=== PATIENT | female | born 1980 | race Caucasian/White ===

== ENCOUNTER 2023-07-03 20:12 | Emergency (ER) | payer OTHER, SELFPAY ==
[2023-07-03 20:21] VITALS: BP 125/90
[2023-07-03 20:22] LABS: Glucose - Point of Care 94 mg/dl (70-99)
[2023-07-03 20:23] VITALS: BP 125/90
[2023-07-03 20:24] VITALS: BMI 22.5
[2023-07-03 20:48] LABS: % Basophils 0.2 % (0-2); % Eosinophils 0.2 % (0-6); % Immature Granulocytes 0.4 % (0-0.5); % Lymphocytes 7.2 % (20.5-51.1); Absolute Lymphocytes 0.3 10^3/uL (1.2-3.4); Absolute Monocytes 0.6 10^3/uL (0.1-0.6); Absolute Neutrophils 3.5 10^3/uL (1.4-6.5); Hematocrit 41.1 % (37.0-47.0); Hemoglobin 14.2 g/dL (12.0-16.0); Mean Corp Hgb Conc. 34.5 g/dL (33.0-37.0); Mean Corpuscular Hgb 29.9 pg (27.0-31.0); Mean Corpuscular Volume 86.5 fL (81.0-99.0); Nucleated Red Blood Cells % 0 %; Platelet Count 125 10^3/uL (130-400); Red Blood Cell Count 4.75 10^6/uL (4.20-5.40); Red Cell Dist. Width 14.5 % (11.5-14.5); White Blood Cell Count 4.5 10^3/uL (4.8-10.8)
--- NOTE | 2023-07-03 20:53 | ED.GENMED ---
History of Present Illness
General
Chief Complaint: Change in Mental Status
Source: patient
Exam Limitations: none
Time Seen by Provider: 07/03/23 20:21
Nursing documentation reviewed up to this point in time: agreed with
History of Present Illness
History of Present Illness:
Patient is a 43-year-old female who [facility] from [facility] with concerns for acute mental status change and possible stroke. On arrival, patient seems to be mouthing words and having trouble verbalizing/projecting volume. She appears shaky and
anxious and is a poor historian. Paramedics report that they have met her in the past and she has never had difficulty speaking like this before. They reports she was last seen normal at around 4:30 PM today. On arrival, patient seems to be
mouthing what she wants to say but nothing is coming out. Her face appears symmetric. She is moving all extremities equally. She appears anxious. Stroke alert called.
After patient came back from CAT scan, patient felt warm to the touch and found to have a fever. I tried to calm patient down to ask her why she is not projecting her words. She is now telling me that her throat is really hurting her. She is
telling me she has body pain and a mild headache. She is mouthing each and every word but is whispering the words. Therefore, I do not think she has aphasia after all.
Past History
Past History
ED Past Medical History: Other
ED Past Surgical History: Other
Social History
Tobacco: Former smoker
Alcohol: None
Drug: Former user and Other (Patient reports she used IV drugs but has not used IV drugs in years)
Personal: Single
Living: [facility]
Employment: Other
Family History
Family History: Other
Review of Systems
Review of Systems
Allergies reviewed?: Yes
All Other Systems: ROS reviewed and negative except as documented in HPI and ROS
Constitutional: Reports fever, fatigue and chills
EENT: Reports other (Sore throat)
Respiratory: Reports no symptoms
Cardiac: Reports no symptoms
ABD/GI: Reports no symptoms
: Reports no symptoms
Musculoskeletal: Reports muscle stiffness
Skin: Reports no symptoms
Neurological: Reports headache
Endocrine: Reports no symptoms
Hematologic/Lymphatic: Reports no symptoms
Psychiatric: Reports anxiety
Phy Exam
Physical Exam
Physical Exam:
Physical Exam
General: Patient is very anxious. She keeps mouthing words but no volume comes out. Appears agitated. Face appears symmetric
Neck: supple. no meningeal signs. normal psoterior pharynx. No pharyngeal erythema or exudate.
Heart: Tachycardic. No murmur
Lungs: no acute respiratory distress. clear bilaterally
Abdomen: Soft, nondistended, nontender
Neuro: alert and orientedx3. no focal neurological deficits
Skin: no rash
Psychiatric: Anxious
Extremities: no edema. no calf tenderness. negative homans. good distal pulses
Course
Orders/Labs/Results
Orders:
Orders
07/03/23 20:14
Electrocardiogram (*1) Urgent
Reason for Study: Other
Other Reason for Exam: Possible Sepsis
Cardiac Monitoring- Treatment ONCE
IV Insert/Care/Rem.- Treatment PRN
Straight cath- Treatment ONCE
O2 Therapy [RESP] Urgent
Titrate/Wean O2 to maintain O2 sat greater than (%): 93
Special Instructions: TO MAINTAIN CONTINUOUS O2 SATS > OR = 93%
Pulse Ox/cont/shift [RESP] Urgent
Quantity: 1
Special Instructions: CONTINUOUS
07/03/23 20:15
EKG- Treatment ONCE
07/03/23 20:21
Complete Blood Count/With Diff Urgent
Comprehensive Metabolic Panel Urgent
HCG, Serum Qualitative Screen Urgent
Comment: ADD ON
Lactic Acid Q4H
Comment: ON ICE, CANCEL 2ND ORDER IF FIRST LACTIC ACID LEVEL <2
Prothrombin Time Urgent
Blood Culture Q30M
CORNELIO Source: Blood/Venous
Specimen Description:
Comment: FROM 2 SEPARATE SITES
Blood Culture Q30M
CORNELIO Source: Blood/Venous
Specimen Description:
Comment: FROM 2 SEPARATE SITES
07/03/23 20:22
CT Head W/o Cont STROKE ALERT Urgent
Comment:
Reason For Exam: aphasia
CT Head/Neck Ang STROKE ALERT Urgent
Comment:
Reason For Exam: aphasia
07/03/23 20:52
0.9% Sodium Chloride 1000 ml [Nss] 1,000 ml IV BOLUS
07/03/23 20:53
Acetaminophen [Tylenol] 1,000 mg PO NOW STA
Ketorolac [Toradol] 30 mg IV NOW STA
07/03/23 20:55
COVID-19 Antigen Urgent
Source: Nasal Swab
Influenza A+B Rapid Molecular Urgent
CORNELIO Source: Nasal Swab
Specimen Description:
07/03/23 21:36
Add On- LAB Urgent
Tests Added?: serum HCG qualitative
07/03/23 21:49
CR Chest - 2 Views Urgent
Comment:
Reason For Exam: suspected infection
07/03/23 22:18
0.9% Sodium Chloride 1000 ml [Nss] 1,000 ml IV BOLUS
07/03/23 22:48
Urinalysis Reflex To Culture Urgent
Date Specimen was Collected: 07/03/23
Time Specimen was Collected: 20:15
07/04/23 00:15
Lactic Acid Q4H
Comment: ON ICE, CANCEL 2ND ORDER IF FIRST LACTIC ACID LEVEL <2
Abnormal Lab Results
07/03/23 07/03/23
20:21 20:55
WBC 4.5 L 10^3/uL
(4.8-10.8)
Plt Count 125 L 10^3/uL
(130-400)
Absolute Lymphs (auto) 0.3 L 10^3/uL
(1.2-3.4)
Neutrophils % 79.0 H %
(42.2-75.2)
Lymphocytes % 7.2 L %
(20.5-51.1)
Monocytes % 13.0 H %
(1.7-9.3)
Glucose 103 H mg/dl
(70-99)
SARS-CoV-2 Antigen Positive A
(Negative)
07/03/23 20:21
07/03/23 20:21
Vital Signs
Initial and Last Documented VS:
Initial Vital Signs
BP
125/90
07/03/23 20:21
Last Documented Vital Signs
Temp Pulse Resp BP Pulse Ox
102.4 F H 103 18 110/65 97
07/03/23 20:50 07/03/23 23:30 07/03/23 23:30 07/03/23 23:00 07/03/23 23:15
MDM/Problems Addressed
Differential Diagnosis Includes:
Acute stroke causing aphasia, epiglottitis, pharyngitis, viral illness
MDM/Problems Addressed:
Patient presents with acute sore throat and bodyaches
Chronic conditions affecting care:
History of IVDA
*Radiology
Radiology exam reviewed: preliminary read by ED provider (Chest x-ray reviewed by me. No acute disease) and radiology read reviewed
*Pulse Oximetry
Patient hypoxic: no
*EKG
Interpreted by ED Provider?: Yes
Interpretation: abnormal
Comparison EKG: no comparison EKG present
Rate: tachycardiac
Rhythm: sinus
[place]: normal axis
Interval: normal interval
QRS Pattern: normal QRS
Ischemia: no ischemia
*Brick Catcher Interpretation
Rate: tachycardiac
Interpretation: abnormal
Rhythm: sinus
*Critical Care Note
Total Time (30-74mins, 75-104mins- exclusive of procedures): Not Applicable
Patient Management
Social determinants of health affecting care: Living situation
Update Note
Update Note:
Patient reports she has not used IV drugs for many years. Therefore, I do not feel she is at a significant risk for bacteremia. I do not hear murmur to suggest endocarditis. I do feel that patient's symptoms are very consistent with an acute
COVID infection given her sore throat, mild headache, body aches
11:20 PM patient speaking normally. Feels better. Heart rate improved.
ED Attending Note
-
Portions of this chart may have been created with voice recognition software.� Occasional wrong word or��sound alike� substitutions may have occurred due to the inherent limitations of voice recognition software.
Discharge Plan
Departure
Patient Disposition: Home (Routine Discharge)
Date of Disposition: 07/03/23
Time of Disposition: 23:08
Patient with high blood pressure during this ER visit?: Yes
Condition: Good
Covid-19: Confirmed COVID-19
Discharge Problem:
COVID
Instructions: COVID-19 ED, Coronavirus Home Quarantine
Prescriptions:
No Action
No Current Medications
0
Referrals:
[facility] [Family Provider] -
Activity Restrictions/Additional Instructions:
Katarina should wear a mask for at least 7 days. Please give her 1000 mg of Tylenol every 6 hours for fever and/ or pain. In addition to the Tylenol, she could also be given 600 mg of Motrin every 6-8 hours for fever and/or pain
Interventions
Interventions:
*Risk Screen - Suicide Last Done: 07/03/23 21:00
*General Assessment Last Done: 07/03/23 21:00
*ED COVID-19 Vaccine History Last Done: 07/03/23 21:00
ED- Neurological Assessment Last Done: 07/03/23 20:45
ED Swallowing Screen Last Done: 07/03/23 20:45
[2023-07-03 20:57] LABS: INR 1.03; PT 13.3 Sec (11.4-14.6)
[2023-07-03 20:58] LABS: Lactic Acid 1.1 mmol/L (0.7-2.0)
[2023-07-03 21:04] LABS: ALT (SGPT) 35 U/L (0-35); AST (SGOT) 34 U/L (14-36); Albumin 4.1 g/dl (3.5-5.0); Alkaline Phosphatase 60 U/L (38-126); Blood Urea Nitrogen 15 mg/dl (7-17); Calcium 9.4 mg/dl (8.4-10.2); Carbon Dioxide 27 mmol/L (22-30); Chloride 99 mmol/L (98-107); Estimated Creatinine Clearance 111 ml/min; Glucose 103 mg/dl (70-99); Potassium 4.5 mmol/L (3.5-5.1); Sodium 135 mmol/L (135-145); Total Bilirubin 0.6 mg/dl (0.2-1.3); Total Protein 7.4 g/dl (6.3-8.2); eGFR > 60.00
[2023-07-03 21:22] LABS: COVID-19 Antigen Positive (Negative)
[2023-07-03 22:00] VITALS: BP 117/84
[2023-07-03] MEDS: TYLENOL 1000 MG PO (22:00)
[2023-07-03 22:01] LABS: HCG, Serum Qualitative Screen Negative
[2023-07-03] MEDS: TORADOL 30 MG IV (22:01)
[2023-07-03] MEDS: NSS 1000 IV ×2 (22:02→22:27)
[2023-07-03 22:41] VITALS: BP 135/89
[2023-07-03 23:00] VITALS: BP 110/65
== END 2023-07-03 23:54 | disposition home or self-care (01) ==
LOC: EMR 20:12
PROVIDERS: EMERGENCY PHYSICIAN Emergency Medicine
DX: U07.1 COVID-19 (principal); R03.0 Elevated blood-pressure reading, without diagnosis of hypertension; Z87.891 Personal history of nicotine dependence
CPT/HCPCS: 99285; 96374; 96361 ×2; 70450; 70496; 70498; 71046; 80053; 82962; 83605; 84703; 85025; 85610; 87040; 87502; 87811; 93005; Q9967

== ENCOUNTER 2023-08-23 23:08 | Inpatient (IN) | payer OTHER, SELFPAY ==
[2023-08-23] VITALS (21 sets, daily range): BP systolic 87–127; BP diastolic 49–82; BMI 26.6; BMI 25.8
--- NOTE | 2023-08-23 11:46 | ED.GENMED ---
History of Present Illness
General
Chief Complaint: Flank Pain
Source: patient and records
Time Seen by Provider: 08/23/23 11:28
Nursing documentation reviewed up to this point in time: agreed with
Travel History
Have you had any contact with someone who has COVID-19?: No
Do you have any symptoms of coronavirus? Fever > 100 degrees, chills, cough, shortness of breath, sore throat, loss of taste or smell, muscle aches, or headache?: No
History of Present Illness
History of Present Illness:
Patient is a 43-year-old female presents to the emergency department complaining of right-sided and right back pain over the past week and a half that spread into the diffuse abdomen. Patient's nauseous without vomiting. Patient denies any
diarrhea. Patient denies dysuria, hematuria but admits to dark urine. Patient denies any previous history of similar episodes. Patient denies fever or chills. Patient has not had a period for more than a year. Patient denies history of kidney
stones. Patient does have a history of IV drug abuse years ago.
Past History
Past History
ED Past Medical History: Psychiatric (Anxiety, depression) and Other (Substance abuse)
ED Past Surgical History: and Other
Social History
Tobacco: Former smoker
Alcohol: None
Drug: Former user and Other (Patient reports she used IV drugs but has not used IV drugs in years)
Personal: Single
Living: pen[facility]
Employment: Other
Family History
Family History: Other
Review of Systems
Review of Systems
All Other Systems: ROS reviewed and negative except as documented in HPI and ROS
Constitutional: Denies fever or chills
EENT: Reports no symptoms
Respiratory: Reports no symptoms
Cardiac: Reports no symptoms
ABD/GI: Reports abdominal pain, nausea and anorexia; Denies vomiting or black stools
: Reports flank pain and dark urine; Denies dysuria
Musculoskeletal: Reports back pain
Skin: Reports no symptoms
Neurological: Reports no symptoms
Hematologic/Lymphatic: Reports no symptoms
Phy Exam
Physical Exam
Physical Exam:
Physical Exam
General: moderate distress, alert and appropriate, well nourished, well hydrated
HENT: Normocephalic, supple with no lymphadenopathy, no thyromegaly
Eyes: Clear sclera, conjuctiva without injection
Heart: Regular rhythm and rate. No S3, S4. No murmur.
Lungs: No respiratory distress, no stridor, lung sounds clear and equal bilaterally
Abdomen: Soft, moderate diffuse tenderness with guarding, no organomegaly, right CVA tenderness, BS good
Neuro: Alert and oriented x 3, CN II - XII intact, no motor focality, no cerebellar dysfunction
Skin: no rash
Psychiatric: well kept. interactive and cooperative
Extremities: No edema, cyanosis, tenderness, Good and equal peripheral pulses.
Course
Orders/Labs/Results
Orders:
Orders
08/23/23 11:40
Complete Blood Count/With Diff Urgent
Urinalysis Reflex To Culture Urgent
Date Specimen was Collected: 08/23/23
Time Specimen was Collected: 11:40
08/23/23 11:42
Comprehensive Metabolic Panel Urgent
HCG, Serum Qualitative Screen Urgent
Lipase Urgent
08/23/23 11:44
0.9% Sodium Chloride 1000 ml [Nss] 1,000 ml IV BOLUS
Acetaminophen 1000MG/100Ml [Ofirmev] 1,000 mg in 100 ml IV ONCE
Acetaminophen IV Indication:: ED Narcotic History-ONCE
Ketorolac [Toradol] 15 mg IV NOW STA
Lidocaine 2% Mpf [Xylocaine Mpf 2%] 100 mg Pharmacy To Prepare [Call Pharmacy To Prepare] 0 ml IV NOW
Ondansetron Injectable [Zofran] 4 mg IV NOW STA
Test Result ONCE
08/23/23 11:45
CT Abd/pel Without Iv Or Oral Urgent
Comment:
Reason For Exam: right flank pain
Vital Signs
Initial and Last Documented VS:
Initial Vital Signs
Temp Pulse Resp BP Pulse Ox
98.9 F 99 20 111/82 100
08/23/23 11:24 08/23/23 11:24 08/23/23 11:24 08/23/23 11:24 08/23/23 11:24
Last Documented Vital Signs
Temp Pulse Resp BP Pulse Ox
98.9 F 99 20 111/82 100
08/23/23 11:24 08/23/23 11:24 08/23/23 11:24 08/23/23 11:24 08/23/23 11:24
*Pulse Oximetry
Patient hypoxic: no
*EKG
Interpreted by ED Provider?: NA
*Garnett Machine Operator Interpretation
Rate: Garnett Machine Operator- N/A
*Critical Care Note
Total Time (30-74mins, 75-104mins- exclusive of procedures): Not Applicable
ED Attending Note
-
Portions of this chart may have been created with voice recognition software.� Occasional wrong word or��sound alike� substitutions may have occurred due to the inherent limitations of voice recognition software.
Discharge Plan
Departure
Prescriptions:
No Action
No Current Medications
0
Referrals:
[facility] [Family Provider] -
Interventions
Interventions:
*Risk Screen - Suicide Last Done: 08/23/23 11:29
*General Assessment Last Done: 08/23/23 11:29
*Neglect/Abuse Screening Last Done: 08/23/23 11:29
*ED COVID-19 Vaccine History Last Done: 08/23/23 11:39
Discharge Date and Time
Print Language: RUSSIAN
[2023-08-23] MEDS: TORADOL 15 MG IV ×2 (11:55→16:45)
[2023-08-23] MEDS: NSS 1000 IV ×2 (11:56→18:28)
[2023-08-23] MEDS: ZOFRAN 4 MG IV ×2 (11:56→15:10)
[2023-08-23 12:02] LABS: % Basophils 0.3 % (0-2); % Immature Granulocytes 0.1 % (0-0.5); % Lymphocytes 15.1 % (20.5-51.1); % Monocytes 12.6 % (1.7-9.3); % Neutrophils 71.9 % (42.2-75.2); Absolute Lymphocytes 1.4 10^3/uL (1.2-3.4); Absolute Monocytes 1.2 10^3/uL (0.1-0.6); Absolute Neutrophils 6.7 10^3/uL (1.4-6.5); Hematocrit 36.8 % (37.0-47.0); Hemoglobin 12.3 g/dL (12.0-16.0); Mean Corp Hgb Conc. 33.4 g/dL (33.0-37.0); Mean Corpuscular Hgb 29.5 pg (27.0-31.0); Mean Corpuscular Volume 88.2 fL (81.0-99.0); Mean Platelet Volume 10.2 fL (7.4-10.4); Nucleated Red Blood Cells % 0 %; Platelet Count 142 10^3/uL (130-400); Red Blood Cell Count 4.17 10^6/uL (4.20-5.40); White Blood Cell Count 9.3 10^3/uL (4.8-10.8)
[2023-08-23] MEDS: OFIRMEV 100 IV (12:06)
[2023-08-23 12:21] LABS: ALT (SGPT) 51 U/L (0-35); AST (SGOT) 49 U/L (14-36); Albumin 4.2 g/dl (3.5-5.0); Alkaline Phosphatase 56 U/L (38-126); Blood Urea Nitrogen 19 mg/dl (7-17); Calcium 9.2 mg/dl (8.4-10.2); Carbon Dioxide 26 mmol/L (22-30); Chloride 102 mmol/L (98-107); Estimated Creatinine Clearance 110 ml/min; Glucose 123 mg/dl (70-99); Lipase 29 U/L (23-300); Potassium 3.9 mmol/L (3.5-5.1); Sodium 134 mmol/L (135-145); Total Bilirubin 0.9 mg/dl (0.2-1.3); Total Protein 7.6 g/dl (6.3-8.2); eGFR > 60.00
[2023-08-23 12:45] LABS: Urine Albumin Trace (Neg - Trace); Urine Bilirubin 1+ (Negative); Urine Character Slightly Cloudy (Clear); Urine Color Amber; Urine Glucose Negative (Negative); Urine Ketone Trace (Negative); Urine Leukocyte 2+ (Negative); Urine Nitrite Negative (Negative); Urine Occult Blood Trace (Negative); Urine Urobilinogen 1+ (Neg - 1+)
[2023-08-23] MEDS: XYLOCAINE MPF 2% 105 MG IV (13:08)
[2023-08-23 13:21] LABS: HCG, Serum Qualitative Screen Negative
[2023-08-23 14:48] LABS: Urine Amorphous Seen; Urine Mucus Few; Urine Squamous Cell 16-20 /LPF (Few)
[2023-08-23 14:50] LABS: Urine Bacteria Few (Negative); Urine Red Blood Cell 0-2 /HPF (0-2); Urine White Cell 40-50 /HPF (0-5)
[2023-08-23] MEDS: DILAUDID 0.5 MG IV (15:09)
[2023-08-23] MEDS: NSS 500 IV (15:12)
--- NOTE | 2023-08-23 18:23 | ED.ATTNOTE ---
ED Attending Note
ED Attending Note
ED Attending Note:
Discussed findings with Dr. Walter who evaluated patient in the ED and plans to take the OR hopefully later tonight
-
Portions of this chart may have been created with voice recognition software.� Occasional wrong word or��sound alike� substitutions may have occurred due to the inherent limitations of voice recognition software.
[2023-08-23] MEDS: GENTAMICIN 58.25 MG IV (22:15)
--- NOTE | 2023-08-23 22:38 | W.IMMPOSTOP ---
Surgical Immed Post Op Note
-
Primary Surgeon: morris
Assisting Surgeon:
Pre-op Diagnosis: rlq pain, r ovarian torsion
Post-op Diagnosis: same
Procedure Performed: diagnostic laparoscopy, exploratory laparotomy, R oophorectomy
Anesthesia Type: General/story
Specimen / Cultures: 10-12 cm r ovary with extensive hemorrhage
Estimated Blood Loss: 80 cc, replacements 800 cc crystalloids
Complications: none
Operative Findings: L periotenal adhesions. colon adherent on R. uterus not visualized due to large ovarian mass twisted twice across pedicle
[2023-08-23] MEDS: DILAUDID 0.25 MG IV ×2 (22:42→23:08)
[2023-08-23] MEDS: NORMOSOL-R 1000 IV (23:03)
[2023-08-24] VITALS (8 sets, daily range): BP systolic 84–108; BP diastolic 50–69
[2023-08-24] MEDS: TORADOL 15 MG IV ×4 (04:50→21:26)
[2023-08-24 05:10] LABS: % Basophils 0.1 % (0-2); % Immature Granulocytes 0.5 % (0-0.5); % Lymphocytes 8.4 % (20.5-51.1); % Monocytes 5.1 % (1.7-9.3); % Neutrophils 85.9 % (42.2-75.2); Absolute Lymphocytes 0.7 10^3/uL (1.2-3.4); Absolute Monocytes 0.4 10^3/uL (0.1-0.6); Absolute Neutrophils 7.5 10^3/uL (1.4-6.5); Hematocrit 29.5 % (37.0-47.0); Hemoglobin 10.1 g/dL (12.0-16.0); Mean Corp Hgb Conc. 34.2 g/dL (33.0-37.0); Mean Corpuscular Hgb 29.9 pg (27.0-31.0); Mean Corpuscular Volume 87.3 fL (81.0-99.0); Mean Platelet Volume 10.2 fL (7.4-10.4); Nucleated Red Blood Cells % 0 %; Platelet Count 127 10^3/uL (130-400); Red Blood Cell Count 3.38 10^6/uL (4.20-5.40); Red Cell Dist. Width 13.7 % (11.5-14.5); White Blood Cell Count 8.7 10^3/uL (4.8-10.8)
[2023-08-24 05:43] LABS: Blood Urea Nitrogen 20 mg/dl (7-17); Carbon Dioxide 24 mmol/L (22-30); Chloride 103 mmol/L (98-107); Estimated Creatinine Clearance 102 ml/min; Potassium 4.5 mmol/L (3.5-5.1); Sodium 135 mmol/L (135-145)
--- NOTE | 2023-08-24 07:28 | W.PN.OBG.DWH ---
Today's Communication / Plan
-
dc [facility]
advance diet
po analg
oob
surgery reviewed with pt
Assessment/Plan
-
POD#1
s/p ex lap, dx lap for torsed R ov
Subjective Data
-
c/o pain, hungry
Objective Data
-
Laboratory Results
08/24/23 04:47
08/24/23 04:47
Vital Signs
Temp Pulse Resp BP Pulse Ox
98.1 F 73 14 84/53 98
08/24/23 07:15 08/24/23 07:15 08/24/23 07:15 08/24/23 07:15 08/24/23 07:15
lungs cl
cor rrr
abd decr bs soft, sl tender
incis c/d/i , umbilical site c/d/i
ext nt
atrombics in place
uo 300cc quez[place]
[2023-08-24] MEDS: NORMOSOL-R 1000 IV ×3 (07:50→22:26)
[2023-08-24] MEDS: COLACE 100 MG PO ×2 (07:51→20:38)
[2023-08-24] MEDS: TYLENOL 650 MG PO (07:51)
--- NOTE | 2023-08-24 08:55 | CM ---
Reviewed the chart notes. Patient is from [facility]. Anticipate the patient to discharge back to facility. CM continues to be available to patient/family and is monitoring medical plan for needs at discharge.
Plan: Discharge back to [facility] when medically stable.
Call report to: [phone]
Fax report to: [phone]
[2023-08-24] MEDS: DILAUDID 0.5 MG IV (14:33)
[2023-08-24] MEDS: MYLICON 80 MG PO (14:33)
--- NOTE | 2023-08-24 14:39 | PTCARENOTE ---
pt assisted to bathroom, voided moderate amount of yellow urine, strong flow of urine but pt missed collection container.
scant amount of vaginal bleeding on ignacio pad. new mesh panties and ignacio pad placed. pt c/o lower abdominal discomfort and gas pains. requested pain medicine. pt returned to bed, generalized weakness noted. medicated w/IV Dilaudid and Mylicon per
MAR. guards remain at bedside. will monitor.
[2023-08-24] MEDS: REMERON 15 MG PO (21:26)
[2023-08-24] MEDS: ROXICODONE 2.5 MG PO (22:39)
[2023-08-25] MEDS: ROXICODONE 2.5 MG PO (03:51)
[2023-08-25] MEDS: NORMOSOL-R 1000 IV (05:38)
[2023-08-25 07:39] VITALS: BP 97/63
[2023-08-25] MEDS: COLACE 100 MG PO (08:55)
[2023-08-25] MEDS: ROXICODONE 5 MG PO ×2 (08:56→14:24)
--- NOTE | 2023-08-25 11:37 | CM ---
Reviewed the chart note. CM continues to be available to patient/family and is monitoring medical plan for needs at discharge.
Plan: Discharge back to [facility] when medically stable.
Call report to: [phone]
Fax report to: [phone]
--- NOTE | 2023-08-25 11:53 | W.PN.OBG.DWH ---
Today's Communication / Plan
-
Await flatus
Encourage ambulation
Regular diet
oral pain medication
anticipate dc tomorrow.
Assessment/Plan
-
43yo POD#2 s/p Diag Lap, converted to Exp Lap RSO for ovarian torsion
1. regular diet as tolerated
2. encouraged OOB/ambulation today. this will help with flatus and pain
3. continue buprenorphine as ordered
4. awaiting return of bowel function
5. pain control as ordered
6. Encouraged I.S use multiple times/hr while awake
7. anticipate dc tomorrow, patient feels that she is not controlled enough for home today
Subjective Data
-
patient says she is still in a lot of pain. Has not been OOB much, just to void. No Flatus yet, No VB. Tolerated some breakfast this morning. No n/v, does have a cough
Objective Data
-
Laboratory Results
08/24/23 04:47
08/24/23 04:47
Vital Signs
Temp Pulse Resp BP Pulse Ox
98.2 F 80 17 97/63 97
08/25/23 07:39 08/25/23 07:39 08/25/23 07:39 08/25/23 07:39 08/25/23 07:39
gen: nad [id number]
Abd: soft, mild ttp, non distended
Ext: No LE ttp
Incision: c/d/i no erythema/induration noted
[2023-08-25 15:28] VITALS: BP 96/64
--- NOTE | 2023-08-25 18:55 | W.PN.UPDATE ---
Update Note
Progress Note Update
patient was released from incarceration today and would like to go home. Feels that she will recover better at home. She states she was able to tolerate further PO intake. No n/v. She had +flatus and took a shower. Pain controlled with oral
medication. I reviewed her home dc instructions. She is to f/u 2 weeks in office for a post-op visit
== END 2023-08-25 19:33 | DRG 743 ==
LOC: 2 SOUTH 23:08
PROVIDERS: ADMITTING PHYSICIAN Obstetrics & Gynecology; EMERGENCY PHYSICIAN Emergency Medicine
PROC: 0UJ34ZZ Inspection of Ovary, Percutaneous Endoscopic Approach (ICD-10-PCS; 2023-08-23)
PROC: 0UT00ZZ Resection of Right Ovary, Open Approach (ICD-10-PCS; 2023-08-23)
DX: N83.511 Torsion of right ovary and ovarian pedicle (principal); Z87.891 Personal history of nicotine dependence
CPT/HCPCS: 88305; 74176; 76830; 76856; 80051; 80053; 81003; 81015; 82565; 83690; 84520; 84703; 85025; 87070; 87086; 96361; 96374; 96375; 96376; 99285; 99406